=== PATIENT | female | born 1960 | race Caucasian/White ===

== ENCOUNTER 2017-07-26 21:25 | Emergency (ER) | payer OTHER ==
[2017-07-26] MEDS ORDERED: Ondansetron 4 MG/2 ML SDV IVPUSH ONE (22:16)
[2017-07-26] MEDS ORDERED: Lisinopril 10 MG Tab PO ONE (22:18)
--- NOTE | 2017-07-26 22:19 | EDM.PDOC ---
ED HPI GENERAL MEDICAL PROBLEM - General Chief Complaint: Abdominal Pain Stated Complaint: ABDOMINAL PAIN,DIARRHEA Time Seen by Provider: 07/26/17 22:18 Source of Information: Reports: Patient History Limitations: Reports: No Limitations - History of Present Illness INITIAL COMMENTS - FREE TEXT/NARRATIVE: pt arrived quite uncomfortable in the upper abdoman. Pt gives a history of when she eats cabbage that she gets bloated and has pain. She had pain up into her chest and she did vomit. Onset: Today Duration: Hour(s):, Getting Worse Location: Reports: Chest, Abdomen Associated Symptoms: Reports: Chest Pain, Nausea/Vomiting Upper Epigastric Pain Score (Numeric/FACES): 7 - Related Data Allergies Allergy/AdvReac Type Severity Reaction Status Date / Time oxycodone [From Tylox] Allergy Dizziness Verified 07/26/17 21:55 silver nitrate Allergy Anaphylactic Verified 07/26/17 21:54 Shock eye drop for pink eye Allergy Numbness Uncoded 07/26/17 21:55 Home Meds: Home Meds Lisinopril 1 tab PO BEDTIME 07/26/17 [History] Omeprazole 1 cap PO BEDTIME 07/26/17 [History] Simvastatin [Zocor] 20 mg PO BEDTIME 07/26/17 [History] Triamcinolone Acetonide [Nasacort] 10.8 ml NS BEDTIME 07/26/17 [History] Past Medical History HEENT History: Reports: Allergic Rhinitis, Impaired Vision Cardiovascular History: Reports: High Cholesterol, Hypertension Gastrointestinal History: Reports: GERD SPECIAL EFFECTS SPECIALIST History: Reports: Endocrine/Metabolic History: Reports: Obesity/BMI 30+ - Past Surgical History Female Surgical History: Reports: Hysterectomy, Other (See Below) Other Female Surgeries/Procedures: cone biopsy Musculoskeletal Surgical History: Reports: Other (See Below) Other Musculoskeletal Surgeries/Procedures:: tendon cut on left leg Social & Family History - Tobacco Use Smoking Status *Q: Never Smoker - Recreational Drug Use Recreational Drug Use: No ED ROS GENERAL - Review of Systems Review Of Systems: See Below Constitutional: Reports: No Symptoms HEENT: Reports: No Symptoms Respiratory: Reports: No Symptoms Cardiovascular: Reports: No Symptoms Endocrine: Reports: No Symptoms GI/Abdominal: Reports: Abdominal Pain, Vomiting, Other (pt hs alot of pressure under her diaphram and it is extending into the left chest. ) : Reports: No Symptoms Musculoskeletal: Reports: No Symptoms Skin: Reports: No Symptoms ED EXAM, GI/ABD - Physical Exam Exam: See Below Text/Narrative:: pt has severe pain under her diaphram and it extends into her left chest. Exam Limited By: No Limitations General Appearance: Alert, Moderate Distress Ears: Normal TMs Nose: Normal Inspection Throat/Mouth: Normal Inspection Head: Atraumatic Neck: Normal Inspection Respiratory/Chest: No Respiratory Distress Cardiovascular: Regular Rate, Rhythm GI/Abdominal Exam: Tender, Other (pt has tenderness in the upper abdoman. ) (Female) Exam: Deferred Rectal (Female) Exam: Deferred Back Exam: Normal Inspection Extremities: Normal Inspection Neurological: Alert, Oriented, Normal Cognition Course - Vital Signs Last Recorded V/S: Last Vital Signs Temp 36.8 C 07/26/17 21:50 Pulse 80 07/26/17 23:12 Resp 17 07/26/17 23:12 BP 172/69 H 07/26/17 23:12 Pulse Ox 96 07/26/17 23:12 - Orders/Labs/Meds Orders: Active Orders 24 hr Category Date Time Status EKG Documentation Completion [RC] ASDIRECTED Care 07/26/17 22:17 Active Abdomen Ltd [US] Stat Exams 07/26/17 22:17 Taken Sodium Chloride 0.9% [Normal Saline] 1,000 ml Med 07/26/17 22:30 Active IV ASDIRECTED EKG 12 Lead [EK] Routine Ther 07/26/17 22:17 Ordered Medication Orders Sodium Chloride (Normal Saline) 1,000 mls @ 999 mls/hr IV ASDIRECTED ROSAS Last Admin: 07/26/17 22:27 Dose: 999 mls/hr Labs: Laboratory Tests 07/26/17 07/26/17 07/26/17 Range/Units 22:15 22:15 22:15 WBC 14.9 H (4.5-11.0) K/uL RBC 4.73 (3.30-5.50) M/uL Hgb 13.8 (12.0-15.0) g/dL Hct 42.3 (36.0-48.0) % MCV 89 (80-98) fL MCH 29 (27-31) pg MCHC 33 (32-36) % Plt Count 405 H (150-400) K/uL Neut % (Auto) 84 H (36-66) % Lymph % (Auto) 11 L (24-44) % [place] % (Auto) 4 (2-6) % Eos % (Auto) 1 L (2-4) % Baso % (Auto) 0 (0-1) % Sodium 139 L (140-148) mmol/L Potassium 4.0 (3.6-5.2) mmol/L Chloride 104 (100-108) mmol/L Carbon Dioxide 27 (21-32) mmol/L Anion Gap 12.0 (5.0-14.0) mmol/L BUN 12 (7-18) mg/dL Creatinine 0.8 (0.6-1.0) mg/dL Est Cr Clr Drug Dosing 66.19 mL/min Estimated GFR (MDRD) > 60 (>60) Glucose 129 H (74-106) mg/dL Calcium 9.2 (8.5-10.1) mg/dL Total Bilirubin 0.4 (0.2-1.0) mg/dL AST 21 (15-37) U/L ALT 28 (12-78) U/L Alkaline Phosphatase 102 (46-116) U/L Troponin I (0.000-0.056) ng/mL C-Reactive Protein 5.94 H (0.0-0.3) mg/dL Total Protein 6.9 (6.4-8.2) g/dL Albumin 3.3 L (3.4-5.0) g/dL Globulin 3.6 H (2.3-3.5) g/dL Albumin/Globulin Ratio 0.9 L (1.2-2.2) Lipase (73-393) U/L Urine Color Urine Appearance Urine pH (4.5-8.0) Ur Specific [place] (1.008-1.030) Urine Protein (NEGATIVE) mg/dL Urine Glucose (UA) (NEGATIVE) mg/dL Urine Ketones (NEGATIVE) mg/dL Urine Occult Blood (NEGATIVE) Urine Nitrite (NEGATIVE) Urine Bilirubin (NEGATIVE) Urine Urobilinogen (NORMAL) mg/dL Ur Leukocyte Esterase (NEGATIVE) Urine RBC (0-5) Urine WBC (0-5) Ur Epithelial Cells Amorphous Sediment Urine Bacteria Urine Mucus 07/26/17 07/26/17 07/26/17 Range/Units 22:18 22:39 23:18 WBC (4.5-11.0) K/uL RBC (3.30-5.50) M/uL Hgb (12.0-15.0) g/dL Hct (36.0-48.0) % MCV (80-98) fL MCH (27-31) pg MCHC (32-36) % Plt Count (150-400) K/uL Neut % (Auto) (36-66) % Lymph % (Auto) (24-44) % [place] % (Auto) (2-6) % Eos % (Auto) (2-4) % Baso % (Auto) (0-1) % Sodium (140-148) mmol/L Potassium (3.6-5.2) mmol/L Chloride (100-108) mmol/L Carbon Dioxide (21-32) mmol/L Anion Gap (5.0-14.0) mmol/L BUN (7-18) mg/dL Creatinine (0.6-1.0) mg/dL Est Cr Clr Drug Dosing mL/min Estimated GFR (MDRD) (>60) Glucose (74-106) mg/dL Calcium (8.5-10.1) mg/dL Total Bilirubin (0.2-1.0) mg/dL AST (15-37) U/L ALT (12-78) U/L Alkaline Phosphatase (46-116) U/L Troponin I < 0.017 (0.000-0.056) ng/mL C-Reactive Protein (0.0-0.3) mg/dL Total Protein (6.4-8.2) g/dL Albumin (3.4-5.0) g/dL Globulin (2.3-3.5) g/dL Albumin/Globulin Ratio (1.2-2.2) Lipase 113 (73-393) U/L Urine Color Yellow Urine Appearance Clear Urine pH 6.5 (4.5-8.0) Ur Specific [place] 1.020 (1.008-1.030) Urine Protein Negative (NEGATIVE) mg/dL Urine Glucose (UA) Normal (NEGATIVE) mg/dL Urine Ketones Negative (NEGATIVE) mg/dL Urine Occult Blood Negative (NEGATIVE) Urine Nitrite Negative (NEGATIVE) Urine Bilirubin Small (NEGATIVE) Urine Urobilinogen 1 (NORMAL) mg/dL Ur Leukocyte Esterase Negative (NEGATIVE) Urine RBC 0-5 (0-5) Urine WBC 0-5 (0-5) Ur Epithelial Cells Few Amorphous Sediment Few Urine Bacteria Few Urine Mucus Not seen Meds: Medications Generic Name Dose Route Start Last Admin Trade Name Gus PRN Reason Stop Dose Admin Sodium Chloride 1,000 mls @ 999 mls/hr 07/26/17 22:30 07/26/17 22:27 Normal Saline IV 999 mls/hr ASDIRECTED ROSAS Administration Discontinued Medications Generic Name Dose Route Start Last Admin Trade Name Gus PRN Reason Stop Dose Admin Hydromorphone HCl 0.5 mg 07/26/17 23:52 Dilaudid IVPUSH 07/26/17 23:53 ONETIME ONE Lisinopril 10 mg 07/26/17 22:18 07/26/17 22:26 Prinivil PO 07/26/17 22:19 10 mg ONETIME ONE Administration Ondansetron HCl 4 mg 07/26/17 22:16 07/26/17 22:27 Zofran IVPUSH 07/26/17 22:17 4 mg ONETIME ONE Administration - Re-Assessments/Exams Free Text/Narrative Re-Assessment/Exam: 07/26/17 23:45 pt had a normal Ekg and normal trop. Her us of the gb was positive in that she has stones and some thickening of the gb. She was given dilaudid and is more comfortable. Departure - Departure Time of Disposition: 23:46 Disposition: Home, Self-Care 01 Condition: Fair Clinical Impression: Cholecystitis with cholelithiasis - Discharge Information Referrals: PCP,None [Primary Care Provider] - Forms: ED Department Discharge Care Plan Goals: appt with the surgeon, cont with augmentin that she is on for sinus infection, rtc if her pain should become severe. - My Orders Last 24 Hours: My Active Orders 07/26/17 22:17 EKG Documentation Completion [RC] ASDIRECTED Abdomen Ltd [US] Stat EKG 12 Lead [EK] Routine 07/26/17 22:30 Sodium Chloride 0.9% [Normal Saline] 1,000 ml IV ASDIRECTED - Assessment/Plan Last 24 Hours: My Active Orders 07/26/17 22:17 EKG Documentation Completion [RC] ASDIRECTED Abdomen Ltd [US] Stat EKG 12 Lead [EK] Routine 07/26/17 22:30 Sodium Chloride 0.9% [Normal Saline] 1,000 ml IV ASDIRECTED
[2017-07-26] MEDS ORDERED: Sodium Chloride 0.9% 1,000 ML IV SCH (22:30)
[2017-07-26] MEDS ORDERED: HYDROmorphone 0.5 MG/0.5 ML Syringe IVPUSH ONE (23:52)
--- NOTE | 2017-07-27 10:13 | US ---
Abdomen Ltd HISTORY: Pain COMPARISON: None FINDINGS: Diffuse increased echogenicity of the liver typical for fatty infiltration. Adjacent to the gallbladder fossa some focal fatty sparing within the liver. No suspicious liver lesions seen. The g allbladder demonstrates multiple gallstones. Borderline gallbladder wall thickening measuring 3 to 4 mm. Common bile duct is normal measuring 5 to 6 mm. Pancreas not well seen. Right kidney unremarkable . The inferior vena cava is patent. No ascites. Impression: 1. Gallstones with upper limits gallbladder wall thickening of 3 to 4 mm. If symptoms persist and hav e classic symptomology of gallbladder pain HIDA scan could be considered. 2. Diffuse fatty infiltration of liver.
== END 2017-07-27 00:26 | disposition home or self-care (01) ==
LOC: JP.ED 21:25
DX: K80.10 Calculus of gallbladder with chronic cholecystitis without obstruction (principal); E78.00 Pure hypercholesterolemia, unspecified; I10 Essential (primary) hypertension; Z88.6 Allergy status to analgesic agent; Z91.048 Other nonmedicinal substance allergy status
CPT/HCPCS: 36415; 76705; 80053; 81001; 83690; 84484; 85025; 86140; 93005; 96361; 96374; 96375; 99285; A9270; J1170; J2405; J7040; J7030

== ENCOUNTER 2017-08-31 09:13 | Day surgery (SDC) | payer OTHER ==
[~2017-08-31 09:13] MED LIST: Bupivacaine 0.5% 50 ML MDV ONE; Lidocaine 1% with EPINEPHrine 1:100,000 50 ML MDV ONE
[2017-08-31] MEDS ORDERED: Propofol 200 MG/20 ML SDV ONE (10:07)
[2017-08-31] MEDS ORDERED: Neostigmine Methylsulfate 1 MG/ML 5 ML Syringe ONE (10:07)
[2017-08-31] MEDS ORDERED: Rocuronium 50 MG/5 ML Vial ONE (10:07)
[2017-08-31] MEDS ORDERED: Glycopyrrolate 0.2 MG/ML 5 ML MDV ONE (10:07)
[2017-08-31] MEDS ORDERED: Succinylcholine 200 MG/10 ML MDV ONE (10:07)
[2017-08-31] MEDS ORDERED: Dexamethasone 4 MG/ML SDV ONE (10:07)
[2017-08-31] MEDS ORDERED: Ondansetron 4 MG/2 ML SDV ONE (10:07)
[2017-08-31] MEDS: Dextrose 5%-Lactated Ringers 1,000 ML IV SCH ×3 (10:29→13:20)
[2017-08-31] MEDS ORDERED: fentaNYL 250 MCG/5 ML SDV ONE ×2 (10:40→11:08)
[2017-08-31] MEDS: cefOXitin 2 GM in Sodium Chloride 0.9% 50 ML IV ONE ×2 (10:57→13:20)
[2017-08-31] MEDS ORDERED: fentaNYL 100 MCG/2 ML SDV IVPUSH PRN (12:08)
[2017-08-31] MEDS ORDERED: Ondansetron 4 MG/2 ML SDV IVPUSH PRN (12:08)
[2017-08-31] MEDS ORDERED: Acetaminophen 325 MG Tab PO PRN (12:08)
[2017-08-31] MEDS ORDERED: hydrOXYzine HCl 100 MG/2 ML SDV IM ONE (12:16)
[2017-08-31] MEDS: Acetaminophen/HYDROcodone 325-5 MG Tab PO PRN ×2 (16:50→21:44)
[2017-08-31] MEDS ORDERED: Pantoprazole 40 MG Tab.CR PO SCH (21:00)
[2017-08-31] MEDS ORDERED: Lisinopril 10 MG Tab PO SCH (21:00)
[2017-08-31] MEDS ORDERED: Simvastatin 20 MG Tab PO SCH (21:00)
[2017-09-01] MEDS: Acetaminophen/HYDROcodone 325-5 MG Tab PO PRN ×2 (02:31→08:55)
--- NOTE | 2017-09-01 08:02 | PCM.DCSUM1 ---
Discharge Summary - Hospital Course Free Text/Narrative:: This 57 year old white female complained of intermittent episodes of epigastric pain which radiates into her back since last fall. Abdominal ultrasound showed cholelithiasis with normal ducts. She appears to have a fatty liver. LFT's were unremarkable. She was admitted on 08/31/17 and underwent a laparoscopic cholecystectomy with Ernesto-cut liver biopsy. Her post operative course is unremarkable. She feels fine. She is eating a regular diet. Her bili and alk phos are unremarkable. She wants to go home. She is discharged at this time in good condition. Brief History: See above narrative. - Discharge Data Discharge Date: 09/01/17 Discharge Disposition: Home, Self-Care 01 Condition: Good - Patient Summary/Data Operative Procedure(s) Performed: Laparoscopic cholecystectomy with Ernesto-cut liver biopsy. Consults: Consultations 08/31/17 12:08 Respiratory Care Assess and Treatment [CONS] Routine Comment: Physician Instructions: Respiratory Care Assess and Treatment [CONS] Routine Comment: Physician Instructions: Post-Op Pneumonia Prevention Hospital Course: See above narrative. - Patient Instructions Diet: Usual Diet as Tolerated Activity: As Tolerated (Avoid activity that causes discomfort. ) Driving, Other: Do not drive while taking narcotic pain medication. Showering/Bathing: May Shower, No Tub Bathing/Swimming Notify Provider of: Fever, Increased Pain, Swelling and Redness, Drainage, Nausea and/or Vomiting - Discharge Plan Home Medications: Home Meds Lisinopril 10 mg PO BEDTIME 07/26/17 [History] Omeprazole 20 mg PO BEDTIME 07/26/17 [History] Simvastatin [Zocor] 20 mg PO BEDTIME 07/26/17 [History] Mometasone Furoate [Nasonex [place]] 2 spray NASBOTH DAILY 08/31/17 [History] Other Amb Orders: Assertion Communication Order [AST] Location: Determined By Patient Referrals: Franco Edwards MD [Physician] - (See me in about two weeks in [facility]. ) - Discharge Summary/Plan Comment DC Time >30 min.: Yes - Patient Data Vitals - Most Recent: Last Vital Signs Temp 97.6 F 09/01/17 02:33 Pulse 55 L 09/01/17 02:33 Resp 18 09/01/17 02:33 BP 118/65 09/01/17 02:33 Pulse Ox 94 L 09/01/17 02:33 Weight - Most Recent: 210 lb 1.6 oz I&O - Last 24 hours: Intake & Output 08/31/17 09/01/17 09/01/17 22:59 06:59 14:59 Intake Total 840 Output Total 1650 400 Balance -810 -400 Lab Results - Last 24 hrs: Laboratory Results - last 24 hr 08/31/17 08/31/17 08/31/17 Range/Units 09:45 09:45 18:25 WBC 7.6 13.9 H (4.5-11.0) K/uL RBC 4.61 4.66 (3.30-5.50) M/uL Hgb 13.6 13.8 (12.0-15.0) g/dL Hct 42.2 42.8 (36.0-48.0) % MCV 92 92 (80-98) fL MCH 30 30 (27-31) pg MCHC 32 32 (32-36) % Plt Count 299 295 (150-400) K/uL Sodium 145 (140-148) mmol/L Potassium 4.0 (3.6-5.2) mmol/L Chloride 108 (100-108) mmol/L Carbon Dioxide 26 (21-32) mmol/L Anion Gap 11.4 (5.0-14.0) mmol/L BUN 9 (7-18) mg/dL Creatinine 0.8 (0.6-1.0) mg/dL Est Cr Clr Drug Dosing 67.58 mL/min Estimated GFR (MDRD) > 60 (>60) Glucose 93 (74-106) mg/dL Calcium 9.3 (8.5-10.1) mg/dL Total Bilirubin 0.2 (0.2-1.0) mg/dL Direct Bilirubin (0.0-0.2) mg/dL Indirect Bilirubin AST 22 (15-37) U/L ALT 27 (12-78) U/L Alkaline Phosphatase 96 (46-116) U/L Total Protein 7.3 (6.4-8.2) g/dL Albumin 3.6 (3.4-5.0) g/dL Globulin 3.7 H (2.3-3.5) g/dL Albumin/Globulin Ratio 1.0 L (1.2-2.2) 09/01/17 09/01/17 Range/Units 04:00 04:00 WBC 13.2 H (4.5-11.0) K/uL RBC 4.04 (3.30-5.50) M/uL Hgb 11.8 L D (12.0-15.0) g/dL Hct 37.5 (36.0-48.0) % MCV 93 (80-98) fL MCH 29 (27-31) pg MCHC 32 (32-36) % Plt Count 302 (150-400) K/uL Sodium (140-148) mmol/L Potassium (3.6-5.2) mmol/L Chloride (100-108) mmol/L Carbon Dioxide (21-32) mmol/L Anion Gap (5.0-14.0) mmol/L BUN (7-18) mg/dL Creatinine (0.6-1.0) mg/dL Est Cr Clr Drug Dosing mL/min Estimated GFR (MDRD) (>60) Glucose (74-106) mg/dL Calcium (8.5-10.1) mg/dL Total Bilirubin 0.2 (0.2-1.0) mg/dL Direct Bilirubin 0.06 (0.0-0.2) mg/dL Indirect Bilirubin TNP AST 40 H D (15-37) U/L ALT 39 (12-78) U/L Alkaline Phosphatase 82 (46-116) U/L Total Protein 6.1 L (6.4-8.2) g/dL Albumin 2.8 L (3.4-5.0) g/dL Globulin 3.3 (2.3-3.5) g/dL Albumin/Globulin Ratio 0.9 L (1.2-2.2) SOBEIDA Results - Last 24 hrs: Microbiology 08/31/17 11:51 Gram Stain - Final Gallbladder Med Orders - Current: Current Medications Acetaminophen (Tylenol) 650 mg PO NOW PRN PRN Reason: Pain (mild 1-3) Last Admin: 08/31/17 13:26 Dose: 650 mg Hydrocodone Bitart/Acetaminophen ([place] 325-5 Mg) 2 tab PO Q4H PRN PRN Reason: Pain (moderate 4-6) Last Admin: 09/01/17 02:31 Dose: 2 tab Fentanyl (Sublimaze) 50 mcg IVPUSH Q1H PRN PRN Reason: Pain (severe 7-10) Dextrose/Lactated Ringer's (Dextrose 5%-Lactated Ringers) 1,000 mls @ 100 mls/ hr IV ASDIRECTED [facility] Last Admin: 08/31/17 13:20 Dose: 100 mls/hr Lisinopril (Prinivil) 10 mg PO BEDTIME [facility] Last Admin: 08/31/17 21:45 Dose: 10 mg Mometasone Furoate (Nasonex [place]) 0 gm NASBOTH DAILY [facility] Ondansetron HCl (Zofran) 4 mg IVPUSH Q4H PRN PRN Reason: Nausea/Vomiting Last Admin: 08/31/17 12:40 Dose: 4 mg Pantoprazole Sodium (Protonix) 40 mg PO BEDTIME [facility] Last Admin: 08/31/17 21:44 Dose: 40 mg Simvastatin (Zocor) 20 mg PO BEDTIME [facility] Last Admin: 08/31/17 21:45 Dose: 20 mg Discontinued Medications Bupivacaine HCl (Marcaine 0.5%) Confirm Administered Dose 50 ml .ROUTE .STK-MED ONE Stop: 08/31/17 06:53 Last Admin: 08/31/17 10:05 Dose: 10 ml Dexamethasone (Dexamethasone) Confirm Administered Dose 4 mg .ROUTE .STK-MED ONE Stop: 08/31/17 10:08 Fentanyl (Sublimaze) Confirm Administered Dose 250 mcg .ROUTE .STK-MED ONE Stop: 08/31/17 10:41 Fentanyl (Sublimaze) Confirm Administered Dose 250 mcg .ROUTE .STK-MED ONE Stop: 08/31/17 11:09 Glycopyrrolate (Robinul) Confirm Administered Dose 1 mg .ROUTE .STK-MED ONE Stop: 08/31/17 10:08 Hydroxyzine HCl (Vistaril) 100 mg IM ONETIME ONE Stop: 08/31/17 12:17 Last Admin: 08/31/17 12:23 Dose: 100 mg Cefoxitin Sodium 2 gm/ Sodium (Chloride) 50 mls @ 100 mls/hr IV ONETIME ONE Stop: 08/31/17 10:44 Last Admin: 08/31/17 13:20 Dose: Not Given Lidocaine/Epinephrine (Xylocaine 1% With Epinephrine 1:100,000) Confirm Administered Dose 50 ml .ROUTE .STK-MED ONE Stop: 08/31/17 06:53 Last Admin: 08/31/17 10:05 Dose: 10 ml Neostigmine Methylsulfate (Neostigmine) Confirm Administered Dose 5 mg .ROUTE .STK-MED ONE Stop: 08/31/17 10:08 Ondansetron HCl (Zofran) Confirm Administered Dose 4 mg .ROUTE .ST-MED ONE Stop: 08/31/17 10:08 Propofol (Diprivan 20 Ml) Confirm Administered Dose 200 mg .ROUTE .ST-MED ONE Stop: 08/31/17 10:08 Rocuronium [place] (Zemuron) Confirm Administered Dose 50 mg .ROUTE .[facility]-MED ONE Stop: 08/31/17 10:08 Succinylcholine Chloride (Quelicin) Confirm Administered Dose 200 mg .ROUTE .[facility] -MED ONE Stop: 08/31/17 10:08 *Q Meaningful Use (DIS) - VTE *Q VTE Criteria *Q: - Stroke *Q Stroke Criteria *Q: - AMI *Q AMI Criteria *Q:
--- NOTE | 2017-09-01 08:04 | OR ---
DATE OF PROCEDURE: 08/31/2017 PREOPERATIVE DIAGNOSIS: Chronic cholecystitis with cholelithiasis, fatty liver. POSTOPERATIVE DIAGNOSIS: Chronic cholecystitis with cholelithiasis, fatty liver. PROCEDURES: Laparoscopic Ernesto-Cut liver biopsy and cholecystectomy. SURGEON: Franco Edwards MD ANESTHESIA: General endotracheal. INDICATION: This 57-year-old white female has experienced about 6 episodes of epigastric pain radiating into her back since the fall of 2016. There was associated nausea and vomiting. This caused her to come to the emergency room. She was found on ultrasound to have cholelithiasis. Her liver functions were unremarkable. There was no ductal dilatation. The inventory control analyst also noted what appeared to be a fatty liver. Prior abdominal surgery consists of a tubal ligation and subsequent vaginal hysterectomy. She is admitted for laparoscopic cholecystectomy with Ernesto-Cut liver biopsy. I counseled her for surgery, including risks and alternatives, and she gave her informed consent to proceed. DESCRIPTION OF PROCEDURE: After adequate general endotracheal anesthesia was obtained, the patient's abdomen was prepped and draped in the usual sterile fashion. Time-out was held. The leg compression stockings were in place and used during the entire procedure. An infraumbilical semicircular incision was made. Under direct vision, a 12-mm port was introduced into the abdomen, and through this incision, the camera was introduced into the abdomen and the abdomen was insufflated to a pressure of 20 mmHg with carbon dioxide. No evidence of intraabdominal injury was seen. Under direct vision, a 12-mm port was placed in the epigastrium and a 5-mm port was placed in the right lower quadrant. A small skin incision was made in the right upper quadrant, and through this, a Ernesto-Cut needle was placed. We then obtained a Ernesto-Cut liver biopsy. A good specimen was obtained. The liver was cauterized to obtain hemostasis. Next, the gallbladder was grasped. There were multiple adhesions of omentum to it, consistent with chronic cholecystitis, and it also had a tinsley hue to it, consistent with chronic cholecystitis. The gallbladder was dissected free from the surrounding adhesions. The cystic duct and artery were dissected free. The artery was clipped up on the gallbladder and 2 times proximally and divided between clips. The duct was then clipped up on the gallbladder and 3 times proximally and divided between clips. The gallbladder was then dissected free from the gallbladder bed using Bovie electrocautery. The gallbladder was placed in a sample retrieval bag, and the bag was elevated up through the anterior abdominal wall via the epigastric port site. It was delivered from the field, where it was opened and noted to contain multiple stones. It was cultured. The epigastric port was reintroduced back in the abdomen. The gallbladder bed was irrigated and suctioned dry. All looked well. The fascial closure device was used to place an 0 Vicryl stitch in the epigastric fascial defect. The infraumbilical port was removed with an interrupted stitch of 0 Vicryl used to close this fascial defect. We aspirated as much CO2 from the abdomen as we could via the 5-mm port site in the right lower quadrant, and then this port was removed. Lidocaine 1% with epinephrine in a 50:50 mix with 0.5% Marcaine was infiltrated about all incisions. 4-0 Vicryl using a subcuticular stitch was placed to approximate the skin of the incisions. Dermabond was applied. The anesthesia was reversed. She was extubated and brought to recovery room in good condition. Franco Edwards MD /[id number]
[2017-09-01] MEDS ORDERED: Mometasone Furoate Nasal Spray 17 GM Canister NASBOTH SCH (09:00)
== END 2017-09-01 10:30 | disposition home or self-care (01) ==
LOC: JP.SDS 09:13 → JP.MS 12:08 → JP.SDS 09-01 10:30
PROVIDERS: ATTEND Surgery
DX: K80.10 Calculus of gallbladder with chronic cholecystitis without obstruction (principal); K76.0 Fatty (change of) liver, not elsewhere classified; K21.9 Gastro-esophageal reflux disease without esophagitis; E66.9 Obesity, unspecified; Z88.8 Allergy status to other drugs, medicaments and biological substances; Z88.1 Allergy status to other antibiotic agents; Z79.899 Other long term (current) drug therapy; Z87.891 Personal history of nicotine dependence
CPT/HCPCS: 36415; 47001; 47562; 80053; 80076; 85027; 87070; 87075; 87205; A9270; J0330; J0694; J1100; J2405; J2704; J2710; J3010; J3410; J7042; J7050; 88304; 88307; 88313